=== PATIENT | male | born 1980 | race Two or more races ===

== ENCOUNTER 2025-05-02 16:39 | Inpatient (IN) | payer BC, OTHER ==
[~2025-05-02] VITALS: Ht 175.3 cm; Wt 104.3 kg
--- NOTE | 2025-05-02 17:34 | ED.PDOC ---
Musculoskeletal HPI Comments HPI: 45 y/o M, presents to the ED for CC of right foot swelling. Patient states, his right foot has become swollen and painful onset, x1week ago. Patient reports, that he has been unable to bear weight onto his right extremity d/t pain; patient currently is ambulating with the assistance of crutches. Patient denies any recent trauma, injuries, or fall. No other symptoms or modifying factors are present at this time. Initial Vitals BP: HR: RR: O2 Sat: Temp: Past Medical history: DENIES ANY Past Surgical history: DENIES ANY Medications: DENIES ANY Social History: Denies smoking, ETOH, and drug use. Allergies: NKDA HPI: Poor Historian. REVIEW OF SYSTEMS: CONSTITUTIONAL: Denies acute: fever, diaphoresis, chills, generalized weakness. HEAD: Denies acute: headache, photophobia Eyes: Denies acute: Double vision, vision loss, eye pain, eye discharge. EARS: Denies acute: tinnitus, hearing loss, ear discharge, ear pain, THROAT: Denies acute: sore throat, swelling, difficulty swallowing , pain with swallowing, change in voice. NECK: Denies acute: neck pain, neck swelling, stiff neck. HEART: Denies acute : chest pain, palpitations, LUNGS: Denies acute: SOB, wheezing, cough, hemoptysis ABDOMEN: Denies acute: abdominal pain, Nausea, Vomiting, diarrhea, melena , hematemesis, hematochezia SKIN: Denies acute: rash, redness, lesions, itchiness. EXTREMITIES: Denies acute: calf pain, numbness, tingling, weakness, Denies acute: Low back pain. Neuro: Denies acute: focal neurological deficit, motor or sensory focal neurological deficit, tremors, seizure like activity, confusion, dizziness, change in mental status, loss of bowel or bladder function, cauda equina like symptoms. : Denies acute: dysuria, hematuria, flank pain, increase in urinary frequency. PSYCH: Denies acute: hallucination, suicidal ideation, homicidal ideation. PHYSICAL EXAM: General: ---mild-----acute distress, awake and alert. Head: normocephalic, atraumatic. No raccoon's eyes, no gonzalez sign. Neck: supple, trachea is midline, no swelling. Throat: Normal phonation. Eyes:, no erythema, no purulent discharge, no proptosis, no icterus. Heart: regular rate, regular rhythm, no significant murmur appreciated. Lungs: no apparent respiratory distress, Able to speak in full sentences. No wheezing, no rhonchi, no crackles. No stridors Clear to auscultation bilaterally. Abdomen: non tender to palpation, non distended, soft, no guarding, no rebound, + bowel sounds. Neuro: Awake, Alert, oriented to name, self, situation, follows commands GCS=15. Speech is normal. Skin: no petechia, no purpura, no cyanosis, non-pale, not jaundice. Lower extremities: --no - Pitting edema no deformity, no focal swelling, no calf TTP. Makes eye contact. moves all four extremities. Evaluation of the area of complaint: Right foot medial aspect bruise is noted that is tender to palpation. Patient is neurovascularly intact in the affected extremity. Pedal pulses palpable sensory and motor are present. Patient denies any trauma. Face: no apparent facial droop. ED COURSE: DISCLAIMER: This medical document was created using an electronic medical record system with voice recognition software and computerized dictation system. Although this document has been carefully reviewed, there might still be some phonetic and typographical errors. Occasional wrong-word or "sound-alike" substitutions may have occurred due to the inherent limitations of voice recognition software. These areas are purely typographical due to imperfections of the software programs and do not reflect any compromise in the patient's medical care. Please read the chart carefully and recognize, using context, where these substitutions have occurred. Chief Complaint: Lower Extremity Time Seen by MD: 17:00 Reviewed Notes: Nurses Notes, Medications, Allergies Allergies: Coded Allergies: NO KNOWN ALLERGIES (Unverified , 05/02/25) Home Meds Active Scripts Famotidine (PEPCID TABLET) 20 Mg Tb, 1 TAB PO BID for 30 Days, #60 TAB 0 Refills Prov:SUKH RIDER MD 05/04/25 Prednisone (Prednisone) 20 Mg Tab, 40 MG PO DAILY for 3 Days, #6 MG Prov:SUKH RIDER MD 05/04/25 Reported Medications Ibuprofen (Ibuprofen) 400 Mg Tab, 400 MG PO, TAB 05/03/25 Information Source: Patient Mode of Arrival: Ambulatory Location: Right Extremity Location: Foot Timing: Weeks Prehospital treatment: None Severity: Moderate Able to Move Extremity: Yes Bear Weight: No Pain: Moderate Mechanism: Spontaneous Circumstances: Spontaneous Onset of Symptoms: Spontaneous Symptoms: Swelling, Pain DVT Risk Factors: NONE Associated signs and symptoms: Foot pain Was a procedure done? Was a procedure done?: No Differential Diagnosis EXT Differential Diagnosis: Cellulitis, Fracture, Sprain, Dislocation, Gout, Con tusion, Septic, Neurovascular injury, Arthritis, Bursitis, Other (Leg swellingDdx include but not limited to DVT, ischemic limb, pitting edema, volume overload, CHF, cellulitis, hematoma, compartment syndrome, dependent edema, venous stasis. Necrotizing fasciitis, abscess, infestation.) X-Ray, Labs, Meds, VS Vital Signs Date Time Temp Pulse Resp B/P (MAP) Pulse Ox O2 Delivery O2 Flow Rate FiO2 05/02/25 20:42 98.1 88 20 142/88 (106) 97 98.1 05/02/25 17:20 96 18 100 Room Air 05/02/25 17:20 98.0 96 18 166/95 (118) 100 98.0 05/02/25 17:18 Room Air* 0 21 05/02/25 16:43 97.0 110 19 133/80 97 97.0 Lab Test 05/02/25 17:12 Range/Units White Blood Count 10.6 4.4-10.8 10^3/uL Red Blood Count 5.19 4.5-5.90 10^6/uL Hemoglobin 15.5 13.5-17.5 g/dL Hematocrit 43.5 41.0-53.0 % Mean Corpuscular Volume 83.9 80.0-100.0 fL Mean Corpuscular Hemoglobin 29.9 28.0-32.0 pg Mean Corpuscular Hemoglobin Concent 35.7 32.0-36.0 g/dL Red Cell Distribution Width 13.1 11.8-14.3 % Platelet Count 307 140-450 10^3/uL Mean Platelet Volume 8.1 6.9-10.8 fL Neutrophils (%) (Auto) 63.3 37.0-80.0 % Lymphocytes (%) (Auto) 28.3 10.0-50.0 % Monocytes (%) (Auto) 6.6 0.0-12.0 % Eosinophils (%) (Auto) 1.3 0.0-7.0 % Basophils (%) (Auto) 0.5 0.0-2.0 % Neutrophils # (Auto) 6.7 1.6-8.6 10 ^3/uL Lymphocytes # (Auto) 3.0 0.4-5.4 10 ^3/uL Monocytes # (Auto) 0.7 0-1.3 10 ^3/uL Eosinophils # (Auto) 0.1 0-0.8 10 ^3/uL Basophils # (Auto) 0.1 0-0.2 10 ^3/uL Nucleated Red Blood Cells 0.0 % Erythrocyte Sedimentation Rate 27 H 0-20 mm/hr Sodium Level 142 136-145 mmol/L Potassium Level 3.5 3.5-5.1 mmol/L Chloride Level 105 98-107 mmol/L Carbon Dioxide Level 23 20-31 mmol/L Anion Gap 14 5-15 Blood Urea Nitrogen 14 9-23 mg/dL Creatinine 1.36 H 0.700-1.30 mg/dL Glomerular Filtration Rate Calc 66 >90 mL/min BUN/Creatinine Ratio 10.3 10.0-20.0 Serum Glucose 107 H 74-106 mg/dL Lactic Acid Level 2.0 0.4-2.0 mmol/L Uric Acid 9.5 H 3.7-9.2 mg/dL Calcium Level 9.7 8.7-10.4 mg/dL Total Bilirubin 0.5 0.2-1.0 mg/dL Aspartate Amino Transferase (AST) 31 13-40 U/L Alanine Aminotransferase (ALT) 54 H 7-40 U/L Alkaline Phosphatase 96 46-116 U/L C-Reactive Protein High Sensitivity 1.63 H <1.0 mg/dL Total Protein 8.5 H 5.7-8.2 g/dL Albumin 5.0 H 3.2-4.8 g/dL Microbiology Date/Time Source Procedure Growth Status 05/02/25 17:16 Blood Blood Culture - Preliminary Resulted 05/02/25 17:12 Blood Blood Culture - Preliminary NO GROWTH AFTER 48 HOURS OF INCUBATION. Resulted [facility] [address] [place] [facility] [place] [address] Ph: [phone] DIAGNOSTIC IMAGING Diagnostic Imaging Report : [id number] Signed PATIENT: SHANTELLE GUADARRAMA ACCT: [id number] UNIT: [id number] : 1980 LOC: ER ROOM / BED: / AGE / SEX: 45 / M ADM STATUS: REG ER SERVICE 34 ORDERING PHYSICIAN: KATY HEMPHILL DO PROCEDURE(s): RFOOT - R FOOT 3 VIEW XRAY REASON: pain swelling ORDER NUMBER(s): [id number], ACCESSION NUMBER(s): [id number] CLINICAL INDICATION: pain swelling TECHNIQUE: 3 radiographic views of the foot were obtained. Comparison: XR FOOT 3+ VIEWS BILAT on DOS: 10/04/23 FINDINGS/IMPRESSION: No fractures or dislocations. No radiopaque foreign bodies. ATED BY: KIMBERLEE SIGALA Jr., DO DICTATED DATE/TIME: 05/02/251904 SIGNED BY: KIMBERLEE SIGALA Jr., SIGNED DATE/TIME: 05/02/251904 CC: Time of 1ST Reevaluation: 17:30 Reevaluation 1ST: Unchanged Patient Education/Counseling: Diagnosis, Treatment Family Education/Counseling: No Family Present Comments MDM: patient presented with the above HPI. Atraumatic--foot pain and swelling----workup was initiated. patient was found with the above mentioned diagnosis. the following medications were ordered: please refer to order lists of meds and tests obtained by myself Dr. Hemphill. Patient ED course and VS have been stabilized. Patient has been reassessed in the ED and remained in a stable condition. Pertinent incidental findings were discussed with the patient and/or family. Patient/family voices understanding and is agreeable with plan. Patient has been observed in the ED adequate length of time to insure improvement/stability. Escalation of care considered: Consideration of escalation to observation or admission Patient was given empiric antibiotics for possible osteomyelitis foot. Patient was ADMITTED to the medicine team for further evaluation and treatment of their presentation. All the reports of any imaging studies that were ordered by myself were reviewed by myself. Sepsis Sepsis Reasesment Focused Exam Orders: Laboratory Tests 05/02/25 17:12: Lactic Acid Level 2.0 Departure 1 Departure Time of Disposition: 20:21 Impression: Primary Impression: Right foot pain Additional Impression: Swelling of right foot Disposition: ADMITTED INPATIENT Admit to: Tele Condition: Guarded Additional Instructions: [address] [address] Ph: [phone] DIAGNOSTIC IMAGING Diagnostic Imaging Report : [id number] Signed PATIENT: SHANTELLE GUADARRAMA ACCT: [id number] UNIT: [id number] : 1980 LOC: ER ROOM / BED: / AGE / SEX: 45 / M ADM STATUS: REG ER SERVICE 34 ORDERING PHYSICIAN: KATY HEMPHILL DO PROCEDURE(s): RFOOT - R FOOT 3 VIEW XRAY REASON: pain swelling ORDER NUMBER(s): [id number], ACCESSION NUMBER(s): [id number] CLINICAL INDICATION: pain swelling TECHNIQUE: 3 radiographic views of the foot were obtained. Comparison: XR FOOT 3+ VIEWS BILAT on DOS: 10/04/23 FINDINGS/IMPRESSION: No fractures or dislocations. No radiopaque foreign bodies. ATED BY: KIMBERLEE SIGALA Jr., DO DICTATED DATE/TIME: 05/02/251904 SIGNED BY: KIMBERLEE SIGALA Jr., DO SIGNED DATE/TIME: 05/02/251904 CC: e-Prescriptions Famotidine (PEPCID TABLET) 20 Mg Tb 1 TAB PO BID for 30 Days, #60 TAB 0 Refills Prov: SUKH RIDER MD 05/04/25 Prednisone (Prednisone) 20 Mg Tab 40 MG PO DAILY for 3 Days, #6 MG Prov: SUKH RIDER MD 05/04/25 Discharged With: Self Critical Care Note Critical Care Time?: No I personally scribed for KATY HEMPHILL DO ([email or web address]) on 05/02/25 at 17:34. Electronically submitted by Kaylin Anthony ([email or web address]). I personally scribed for KATY HEMPHILL DO ([email or web address]) on 05/02/25 at 19:57. Electronically submitted by Kaylin Anthony ([email or web address]). KATY HEMPHILL DO May 02, 2025 17:34
[2025-05-02 17:50] LABS: Hematocrit 43.5 % (41.0-53.0); Hemoglobin 15.5 g/dL (13.5-17.5); Mean Corpuscular Hemoglobin 29.9 pg (28.0-32.0); Mean Corpuscular Volume 83.9 fL (80.0-100.0); Nucleated Red Blood Cells % 0.0 %
[2025-05-02 17:54] LABS: Alkaline Phosphatase 96 U/L (46-116); Anion Gap 14 (5-15); BUN/Creatinine Ratio 10.3 (10.0-20.0); Blood Urea Nitrogen 14 mg/dL (9-23); Calcium 9.7 mg/dL (8.7-10.4); Carbon Dioxide 23 mmol/L (20-31); Chloride 105 mmol/L (98-107); Sodium 142 mmol/L (136-145)
[2025-05-02 17:55] LABS: Bilirubin, Total 0.5 mg/dL (0.2-1.0)
[2025-05-02 17:59] LABS: Alanine Aminotransferase 54 U/L (7-40); Albumin 5.0 g/dL (3.2-4.8); Glucose 107 mg/dL (74-106); Potassium 3.5 mmol/L (3.5-5.1); Total Protein 8.5 g/dL (5.7-8.2)
--- NOTE | 2025-05-02 19:08 | DVH ---
CLINICAL INDICATION: pain swelling TECHNIQUE: 3 radiographic views of the foot were obtained. Comparison: XR FOOT 3+ VIEWS BILAT on DOS: 10/04/23 FINDINGS/IMPRESSION: No fractures or dislocations. No radiopaque foreign bodies.
[2025-05-02] MEDS: HYDROcodone-ACET 5/325MG TAB PO ONE (21:17)
[2025-05-02] MEDS: CLINDAMYCIN 600MG IV 50 ML IV ONE (21:21)
--- NOTE | 2025-05-02 21:45 | DVHHPRES ---
History of Present Illness Resident Creating Document: TEJINDER LOPEZ History of Present Illness Patient is a 45-year-old male with no significant past medical history, presented to [facility] ED with complaint of right foot pain and swelling. Patient reports that his right foot became swollen and painful st arting 1 week ago. He describes the pain as burning in nature, radiating to the right big toe, and associated with swelling and bruising and also reports pain in his left big toe. 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 He also reports a right foot fracture sustained 20 years ago, without surgical intervention. Since then, he has experienced intermittent pain and swelling in the right foot. Patient reports inability to bear weight on the right lower extremity due to pain. Patient is currently ambulating with the assistance of crutches. Patient denies any recent trauma, injury, or falls. On evaluation in the ED, patient is afebrile, vitals are stable, blood pressure 166/95 mmHg. Initial labs show significant uric acid 9.5, creatinine 1.35 with elevated ESR, CRP. Foot X-Ray shows no fractures or dislocations and no radiopaque foreign bodies. The patient was started on pain medication and IV fluids. Patient is admitted for further evaluation and manage ment. Past Surgical History: None Family History: None Smoke: Quit ALCOHOL: heavy Drugs: None Lives: with Family Review of Systems Review of Systems Eyes: No Pain, No Vision change, No Conjunctivae inflammation, No Eyelid inflammation, No Other, No Redness ENT: No Ear pain, No Ear discharge, No Nose pain, No Nose discharge, No Nose congestion, No Mouth pain, No Mouth swelling, No Throat pain, No Throat swelling, No Other Cardiovascular: No Chest Pain, No Palpitations, No Orthopnea, No Paroxysmal No Dyspnea, No Edema, No Lt Headedness, No Other Respiratory: No Cough, No Dry, No Shortness of breath, No SOB with exertion, No Wheezing, No Hemoptysis, No Pleuritic Pain, No Sputum, No Other Gastrointestinal: No Nausea, No Vomiting, No Abdominal Pain, No Diarrhea, No Constipation, No Melena, No Hematochezia, No Other Genitourinary: No Dysuria, No Frequency, No Incontinence, No Hematuria, No Retention, No Other Musculoskeletal: No other, No neck pain, No shoulder pain, No arm pain, No back pain, No hand pain, No leg pain, left foot pain, right foot pain Skin: No Rash, No Lesions, No Jaundice, No Bruising, No Other Allergies: Coded Allergies: NO KNOWN ALLERGIES (Unverified , 05/02/25) Exam Vital Signs Vital Signs Date Time Temp Pulse Resp B/P (MAP) Pulse Ox O2 Delivery O2 Flow Rate FiO2 05/02/25 20:42 98.1 88 20 142/88 (106) 97 98.1 05/02/25 17:20 Room Air 05/02/25 17:18 0 21 Exam General Appearance: Mild distress. Cooperative. Well developed. Well nourished. NAD Head Exam: Normal inspection Neck Exam: Normal inspection. Non-tender. Normal alignment Pulmonary/Respiratory: Chest non-tender. Clear bilateral breath sounds, no crackles, no wheezing. Cardiovascular/Chest: Regular rate and rhythm. No murmurs. No JVD. Peripheral Pulses: 2+ Radial (R). 2+ Radial (L). 2+ Pedal (R). 2+ Pedal (L) Abdominal Exam: Normal bowel sounds. Soft. normal abdomen, no visible veins, Nontender. No hepatospenomegaly. No masses Ankle Exam: Ankle edema Right Lower Extremity: +1 pitting edema. Bruising noted. Visible deformity of the right forefoot. Decreased pedal pulse compared to contralateral side Neuro/Mental Status: A&O x4. Coherent. Thoughts/Psych: Normal thought pattern. Appropriate mood and affect. Good judgement and insight Skin Exam: Normal inspection. Normal color. Warm. Dry Labs/Xrays Labs Test 05/02/25 17:12 Range/Units White Blood Count 10.6 4.4-10.8 10^3/uL Red Blood Count 5.19 4.5-5.90 10^6/uL Hemoglobin 15.5 13.5-17.5 g/dL Hematocrit 43.5 41.0-53.0 % Mean Corpuscular Volume 83.9 80.0-100.0 fL Mean Corpuscular Hemoglobin 29.9 28.0-32.0 pg Mean Corpuscular Hemoglobin Concent 35.7 32.0-36.0 g/dL Red Cell Distribution Width 13.1 11.8-14.3 % Platelet Count 307 140-450 10^3/uL Mean Platelet Volume 8.1 6.9-10.8 fL Neutrophils (%) (Auto) 63.3 37.0-80.0 % Lymphocytes (%) (Auto) 28.3 10.0-50.0 % Monocytes (%) (Auto) 6.6 0.0-12.0 % Eosinophils (%) (Auto) 1.3 0.0-7.0 % Basophils (%) (Auto) 0.5 0.0-2.0 % Neutrophils # (Auto) 6.7 1.6-8.6 10 ^3/uL Lymphocytes # (Auto) 3.0 0.4-5.4 10 ^3/uL Monocytes # (Auto) 0.7 0-1.3 10 ^3/uL Eosinophils # (Auto) 0.1 0-0.8 10 ^3/uL Basophils # (Auto) 0.1 0-0.2 10 ^3/uL Nucleated Red Blood Cells 0.0 % Erythrocyte Sedimentation Rate 27 H 0-20 mm/hr Sodium Level 142 136-145 mmol/L Potassium Level 3.5 3.5-5.1 mmol/L Chloride Level 105 98-107 mmol/L Carbon Dioxide Level 23 20-31 mmol/L Anion Gap 14 5-15 Blood Urea Nitrogen 14 9-23 mg/dL Creatinine 1.36 H 0.700-1.30 mg/dL Glomerular Filtration Rate Calc 66 >90 mL/min BUN/Creatinine Ratio 10.3 10.0-20.0 Serum Glucose 107 H 74-106 mg/dL Lactic Acid Level 2.0 0.4-2.0 mmol/L Uric Acid 9.5 H 3.7-9.2 mg/dL Calcium Level 9.7 8.7-10.4 mg/dL Total Bilirubin 0.5 0.2-1.0 mg/dL Aspartate Amino Transferase (AST) 31 13-40 U/L Alanine Aminotransferase (ALT) 54 H 7-40 U/L Alkaline Phosphatase 96 46-116 U/L C-Reactive Protein High Sensitivity 1.63 H <1.0 mg/dL Total Protein 8.5 H 5.7-8.2 g/dL Albumin 5.0 H 3.2-4.8 g/dL SEPSIS Sepsis Screen Date sepsis recognized/suspect: May 02, 2025 Time Sepsis recognized/suspect: 2042 Recent Procedure: No On Antibiotic Therapy: No Respiratory Rate >20: No Heart Rate >90: No Temp<36 C (96.8 F) or >38.3 C: No SBP <90 or MAP <65 mmHG: No New Acute Mental Status Change: No Is the patient on CPAP, BIPAP,: No Physician Orders Road Commissioner (05/02/25 ) Blood Culture (05/02/25 16:56) R Foot 3 View Xray (05/02/25 18:35) Vital Signs Date Time Temp Pulse Resp B/P (MAP) Pulse Ox O2 Delivery O2 Flow Rate FiO2 05/02/25 20:42 98.1 88 20 142/88 (106) 97 98.1 05/02/25 17:20 96 18 100 Room Air 05/02/25 17:20 98.0 96 18 166/95 (118) 100 98.0 05/02/25 17:18 Room Air* 0 21 05/02/25 16:43 97.0 110 19 133/80 97 97.0 Laboratory Tests Test 05/02/25 17:12 Lactic Acid Level 2.0 mmol/L (0.4-2.0) White Blood Count 10.6 10^3/uL (4.4-10.8) Medications Medications Dose Ordered Sig/Miracle Route Start Time Stop Time Status Last Admin Dose Admin Acetaminophen/ Hydrocodone Bitart 1 tab ONCE ONCE PO 05/02/25 20:15 05/02/25 20:22 DC 05/02/25 21:17 1 TAB Clindamycin Phosphate 50 ml @ 50 mls/hr ONCE ONCE IV 05/02/25 20:30 05/02/25 21:29 DC 05/02/25 21:21 50 MLS/HR Assessment/Plan Assessment/Plan Gout flare Ruled out DVT Bilateral lower extremity venous duplex: No right or left femoropopliteal venous thrombosis. Enlarged right inguinal lymph node. Bilateral lower extremity arterial duplex: No hemodynamically significant stenosis based on peak systolic velocity criteria. Foot CT: No acute fracture in the right foot. Mild 1st MTP joint osteoarthritis. Degenerative changes of the tarsometatarsal joints with osteophyte formation, subchondral lucencies and mild joint space narrowing. Mild subcutaneous edema throughout the right foot. Foot X-ray: No fractures or dislocations. No radiopaque foreign bodies. Colchicine 1.2 MG PO once Uric acid 9.5 UA and UDS pain management with Dilaudid 0.25 MG IV q4h prn IV NS 150 MLS/HR Blood culture THANG Transaminase Monitor Possible TIN on CKD likely due to VMN Monitor renal function Avoid nephrotoxic drugs Diet: Cardiac Goals of care: Full code, discussed for >30 minutes on 05/02/25 Plan discussed with patient Plan discussed with Dr. Schumacher Plan discussed with: Patient Date of Service: May 02, 2025 Billing Provider: TROY SCHUMACHER MD Common Visit Codes: 89548-[id number] INP/OBS CARE (HIGH) Secondary Visit Codes: [id number] CARE PLAN 30 MINUTES TEJINDER LOPEZ RESIDENT May 02, 2025 21:45
[2025-05-02] MEDS: SODIUM CHLORIDE 0.9% 1,000 ML IV ONE (23:37)
[2025-05-02 23:47] VITALS: PULSE 69; RESP 18; O2SAT 94
--- NOTE | 2025-05-02 23:49 | DVH ---
EXAM: CT CT R FOOT WO CONTRAST HISTORY: right foot pain COMPARISON: XY R FOOT 3 VIEW XRAY on DOS: 05/02/25 TECHNIQUE: Noncontrast axial CT images of the right foot were performed. Sagittal and coronal reformatted images were obtained. This CT exam was performed using one or more of the following dose reduction techniques: Automated exposure control, adjustment of the mA and/or kV according to patient size, or use of iterative reconstruction technique. Radiation Dose Information: CT Dose: CTDI volume is 24.96 mGy. Dose-length product is 800.05 mGy*cm FINDINGS: Normal mineralization and alignment.Mild 1st MTP joint osteoarthritis. There is degenerative changes of the tarsometatarsal joints with osteophyte formation, subchondral lucencies and joint space narrowing. No acute fracture. No focal osteopenia or cortical destruction is seen to suggest osteomyelitis. Mild subcutaneous edema throughout the right foot. No soft tissue emphysema or fluid collection. IMPRESSION: 1. No acute fracture in the right foot. 2. Mild 1st MTP joint osteoarthritis 3. Degenerative changes of the tarsometatarsal joints with osteophyte formation, subchondral lucencies and mild joint space narrowing. 4. Mild subcutaneous edema throughout the right foot.
[2025-05-03] VITALS (9 sets, daily range): BP systolic 107–136; BP diastolic 64–84; PULSE 69–106; RESP 16–18; TEMP 97.9–98.9; O2SAT 95–97
--- NOTE | 2025-05-03 00:23 | DVH ---
Bilateral lower extremity venous duplex Clinical History: foot pain Comparison: US BILAT LOW EXT ART DUPLEX on DOS: 05/02/25 Technique: Duplex Doppler evaluation of the deep venous systems of both lower extremities from the common femoral veins to the popliteal veins including color Doppler and spectral/pulsed waveform analysis was performed. Findings: RIGHT SIDE: The common femoral vein demonstrates appropriate compressibility and waveform variability. There is compressibility/patency of the great saphenous vein at the proximal thigh. The femoral vein demonstrates appropriate compressibility and waveform variability. The deep femoral vein demonstrates appropriate compressibility and waveform variability. The popliteal vein demonstrates appropriate compressibility and waveform variability. There is normal compressibility at the tibioperoneal trunk. Enlarged right inguinal lymph node measures 4.1 cm. LEFT SIDE: The common femoral vein demonstrates appropriate compressibility and waveform variability. There is compressibility/patency of the great saphenous vein at the proximal thigh. The femoral vein demonstrates appropriate compressibility and waveform variability. The deep femoral vein demonstrates appropriate compressibility and waveform variability. The popliteal vein demonstrates appropriate compressibility and waveform variability. Rouleaux flow noted. There is normal compressibility at the tibioperoneal trunk. Impression: 1. No right or left femoropopliteal venous thrombosis. 2. Enlarged right inguinal lymph node.
--- NOTE | 2025-05-03 00:29 | DVH ---
Bilateral Lower Extremity Arterial Duplex Clinical History: decrease pedal pulse Comparison: US BILAT LOWER DVT on DOS: 05/02/25 Technique: Duplex Doppler evaluation including color Doppler and spectral/pulsed waveform analysis of the lower extremity arteries was performed. Findings: RIGHT: Peak systolic velocities are as follows: ALMOND BLANCHER 97 cm/s Deep femoral 59 cm/s SFA proximal 109 cm/s SFA mid-portion 106 cm/s SFA distal 100 cm/s Posterior tibial 94 cm/s Anterior tibial 104 cm/s Dorsalis pedis 121 cm/s The waveforms are triphasic with diastolic flow. LEFT: Peak systolic velocities are as follows: ALMOND BLANCHER is 86 cm/s Deep femoral 45 cm/s SFA proximal 106 cm/s SFA mid-portion 85 cm/s SFA distal 85 cm/s Popliteal 60 cm/s Posterior tibial 57 cm/s Anterior tibial 62 cm/s Dorsalis pedis 69 cm/s The waveforms are triphasic with diastolic flow. IMPRESSION: No hemodynamically significant stenosis based on peak systolic velocity criteria. REFERENCE VALUES, [facility] ([facility]) vascular Imaging Lab Criteria: Peak systolic velocity ranges (in cm/sec) are as follows: <150 cm/s - <20 % stenosis 150-200 cm/s - 20-49% stenosis 200-300 cm/s - 50-75% stenosis >300 cm/s -> 75% stenosis
[2025-05-03 02:53] LABS: Hematocrit 42.2 % (41.0-53.0); Hemoglobin 14.6 g/dL (13.5-17.5); Mean Corpuscular Hemoglobin 29.5 pg (28.0-32.0); Mean Corpuscular Volume 85.4 fL (80.0-100.0); Nucleated Red Blood Cells % 0.0 %
[2025-05-03 03:17] LABS: Alanine Aminotransferase 46 U/L (7-40); Albumin 4.5 g/dL (3.2-4.8); Alkaline Phosphatase 87 U/L (46-116); Anion Gap 10 (5-15); BUN/Creatinine Ratio 13.4 (10.0-20.0); Bilirubin, Total 0.6 mg/dL (0.2-1.0); Blood Urea Nitrogen 17 mg/dL (9-23); Calcium 9.9 mg/dL (8.7-10.4); Carbon Dioxide 27 mmol/L (20-31); Chloride 105 mmol/L (98-107); Glucose 98 mg/dL (74-106); Potassium 4.3 mmol/L (3.5-5.1); Sodium 142 mmol/L (136-145); Total Protein 7.4 g/dL (5.7-8.2)
[2025-05-03] MEDS: COLCHICINE 0.6 MG CAP PO ONE (05:12)
[2025-05-03] MEDS: HYDROmorphone HCL 2 MG/ML VL/or syr IV PRN (05:13)
[2025-05-03] MEDS ORDERED: IBUP-1453 PO (06:01)
--- NOTE | 2025-05-03 12:15 | DVHPN2 ---
Reviewed: H&P Changes from previous H/P or p: No Changes General: Per HPI Objective Vitals Vital Signs Date Time Temp Pulse Resp B/P (MAP) Pulse Ox O2 Delivery O2 Flow Rate FiO2 05/03/25 08:51 97.9 90 17 125/83 (97) 96 97.9 05/03/25 01:22 Room Air* 0 21 Intake/Output Intake and Output 05/03/25 07:00 Intake Total 50 ml Balance 50 ml Intake IV Total 50 ml # Voids 1 Exam General Appearance: Mild distress. Cooperative. Well developed. Well nourished. NAD Head Exam: Normal inspection Neck Exam: Normal inspection. Non-tender. Normal alignment Pulmonary/Respiratory: Chest non-tender. Clear bilateral breath sounds, no crackles, no wheezing. Cardiovascular/Chest: Regular rate and rhythm. No murmurs. No JVD. Peripheral Pulses: 2+ Radial (R). 2+ Radial (L). 2+ Pedal (R). 2+ Pedal (L) Abdominal Exam: Normal bowel sounds. Soft. normal abdomen, no visible veins, Nontender. No hepatospenomegaly. No masses Ankle Exam: Ankle edema Right Lower Extremity: +1 pitting edema. Bruising noted. Visible deformity of the right forefoot. Decreased pedal pulse compared to contralateral side Neuro/Mental Status: A&O x4. Coherent. Thoughts/Psych: Normal thought pattern. Appropriate mood and affect. Good judgement and insight Skin Exam: Normal inspection. Normal color. Warm. Dry Medications Current Medications Medications Dose Ordered Sig/Miracle Route Start Time Stop Time Status Last Admin Dose Admin Hydromorphone HCl 0.25 mg Q4HPRN PRN IV 05/02/25 22:45 05/03/25 05:13 0.25 MG Laboratory Results Laboratory Tests 05/03/25 02:16 Chemistry Test 05/02/25 17:12 05/03/25 02:16 Albumin 5.0 g/dL (3.2-4.8) H 4.5 g/dL (3.2-4.8) Calcium Level 9.7 mg/dL (8.7-10.4) 9.9 mg/dL (8.7-10.4) Total Protein 8.5 g/dL (5.7-8.2) H 7.4 g/dL (5.7-8.2) LFT Test 05/02/25 17:12 05/03/25 02:16 Alanine Aminotransferase (ALT) 54 U/L (7-40) H 46 U/L (7-40) H Alkaline Phosphatase 96 U/L (46-116) 87 U/L (46-116) Aspartate Amino Transferase (AST) 31 U/L (13-40) 25 U/L (13-40) Total Bilirubin 0.5 mg/dL (0.2-1.0) 0.6 mg/dL (0.2-1.0) Labs and/or images reviewed: Labs reviewed by me, Image(s) reviewed by me Assessment/Plan Assessment/Plan 45-year-old male with no significant past medical history, presented to [facility] ED with complaint of right foot pain and swelling. Patient reports that his right foot became swollen and painful starting 1 week ago. He describes the pain as burning in nature, radiating to the right big toe, and associated with swelling and bruising and also reports pain in his left big toe. 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 He also reports a right foot fracture sustained 20 years ago, without surgical intervention. Since then, he has experienced intermittent pain and swelling in the right foot. Patient reports inability to bear weight on the right lower extremity due to pain. Patient is currently ambulating with the assistance of crutches. Patient denies any recent trauma, injury, or falls. On evaluation in the ED, patient is afebrile, vitals are stable, blood pressure 166/95 mmHg. Initial labs show significant uric acid 9.5, creatinine 1.35 with elevated ESR, CRP. Foot X-Ray shows no fractures or dislocations and no radiopaque foreign bodies. The patient was started on pain medication and IV fluids. Patient is admitted for further evaluation and management. 05/03: 45-year-old male no past medical coming in with right foot pain swollen. Gout flare right foot,. Also have TIN due to VMN,. Right foot x-ray and CT with no fractures. Arterial ultrasound bilateral lower extremity with no stenosis. We will continue IV fluids, colchicine, Solu-Medrol IV 20 b.i.d., Protonix 40 daily IV. 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 We will give IV fluids. Treating gout inpatient. Reassess tomorrow. 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 Med surge Full code Plan discussed with: Patient Date of Service: May 03, 2025 Billing Provider: SUKH RIDER MD Common Visit Codes: [id number] INP/OBS CARE(HIGH) SUKH RIDER MD May 03, 2025 12:15
[2025-05-03] MEDS: COLCHICINE 0.6 MG CAP PO SCH (13:08)
[2025-05-03] MEDS: PANTOPRAZOLE 40 MG/10 ML VIAL INJ IV SCH (13:08)
[2025-05-03] MEDS: methylPREDNISolone SOD SUCC 40 MG/ML VL IV SCH (13:10)
[2025-05-03] MEDS: SODIUM CHLORIDE 0.9% 1,000 ML IV ONE (13:14)
[2025-05-03 14:36] LABS: Urine Protein, UAD Negative (Negative)
[2025-05-03 14:39] LABS: Cocaine Screen, Urine Neg (NEGATIVE); Opiate Scree,Urine Neg (NEGATIVE)
[2025-05-03 14:47] LABS: Amphetamine Screen, Urine Neg (NEGATIVE); Barbiturate Scree,Urine Neg (NEGATIVE); Benzodiazephine Screen, Urine Neg (NEGATIVE); Phencyclidine Screen, Urine Neg (NEGATIVE)
[2025-05-03 14:48] LABS: Cannabinoid Screen, Urine Neg (NEGATIVE)
[2025-05-04 01:00] VITALS: BP 107/52; PULSE 97; RESP 18; TEMP 98.2; O2SAT 93
[2025-05-04 05:00] VITALS: BP 109/63; PULSE 94; RESP 18; TEMP 99.2; O2SAT 97
[2025-05-04 06:47] LABS: Alkaline Phosphatase 96 U/L (46-116); Calcium 10.2 mg/dL (8.7-10.4); Carbon Dioxide 25 mmol/L (20-31); Chloride 105 mmol/L (98-107)
[2025-05-04 06:48] LABS: Albumin 4.5 g/dL (3.2-4.8); Anion Gap 12 (5-15); BUN/Creatinine Ratio 11.7 (10.0-20.0); Bilirubin, Total 0.6 mg/dL (0.2-1.0); Blood Urea Nitrogen 14 mg/dL (9-23); Potassium 4.1 mmol/L (3.5-5.1); Sodium 142 mmol/L (136-145); Total Protein 7.8 g/dL (5.7-8.2)
[2025-05-04 06:50] LABS: Alanine Aminotransferase 70 U/L (7-40); Glucose 142 mg/dL (74-106)
[2025-05-04 08:00] VITALS: PULSE 96; O2SAT 93
[2025-05-04 09:00] VITALS: BP 128/63; PULSE 96; RESP 17; TEMP 98.6; O2SAT 93
[2025-05-04] MEDS ORDERED: VANCOMYCIN PER PHARMACY 0 MG IV SCH (09:30)
[2025-05-04] MEDS: VANCOMYCIN 1.5GM/250ML 250 ML IV SCH (10:25)
[2025-05-04 13:00] VITALS: BP 119/77; PULSE 79; RESP 17; TEMP 99; O2SAT 94
[2025-05-04 13:08] LABS: Anti-Centromere B Antibody <0.2 AI (0.0-0.9); Anti-Jo-1 Antibody <0.2 AI (0.0-0.9); Anti-dsDNA Antibody <1 IU/mL (0-9); Antichromatin Antibody <0.2 AI (0.0-0.9); Antiscleroderma-70 Antibody <0.2 AI (0.0-0.9); Sjogren's Anti-SS-A Antibody <0.2 AI (0.0-0.9); Sjogren's Anti-SS-B Antibody <0.2 AI (0.0-0.9)
[2025-05-04] MEDS ORDERED: diphenhydrAMINE HCL 50 MG/1 ML VL IV PRN (13:45)
[2025-05-04] MEDS ORDERED: PRED20TA2 PO (14:14)
[2025-05-04] MEDS ORDERED: FAMO20TA10 PO (14:16)
--- NOTE | 2025-05-04 14:17 | DVHDS2 ---
Discharge Summary Date of Admission May 02, 2025 at 22:36 Date of Discharge: May 04, 2025 Labs/Diagnostic Data: Laboratory Results Test 05/04/25 05:08 05/03/25 13:24 05/03/25 02:16 05/02/25 17:12 Sodium Level 142 mmol/L (136-145) Potassium Level 4.1 mmol/L (3.5-5.1) Chloride Level 105 mmol/L (98-107) Carbon Dioxide Level 25 mmol/L (20-31) Anion Gap 12 (5-15) Blood Urea Nitrogen 14 mg/dL (9-23) Creatinine 1.20 mg/dL (0.700-1.30) Glomerular Filtration Rate Calc 77 mL/min (>90) BUN/Creatinine Ratio 11.7 (10.0-20.0) Serum Glucose 142 mg/dL (74-106) Calcium Level 10.2 mg/dL (8.7-10.4) Total Bilirubin 0.6 mg/dL (0.2-1.0) Aspartate Amino Transferase (AST) 41 U/L (13-40) Alanine Aminotransferase (ALT) 70 U/L (7-40) Alkaline Phosphatase 96 U/L (46-116) Total Protein 7.8 g/dL (5.7-8.2) Albumin 4.5 g/dL (3.2-4.8) Urine Color Light-yellow (Yellow) Urine Clarity Clear (Clear) Urine pH 5.5 (5.0-9.0) Urine Specific Shiro 1.015 (1.001-1.035) Urine Protein Negative (Negative) Urine Ketones Negative (Negative) Urine Blood Negative /uL (Negative) Urine Nitrite Negative (Negative) Urine Bilirubin Negative (Negative) Urine Urobilinogen Normal mg/dL (Negative) Urine Leukocyte Esterase Negative /uL (Negative) Urine RBC 1 /hpf (0 - 3) Urine Microscopic WBC 2 /HPF (0-3) Urine Squamous Epithelial Cells Few /hpf (<5) Urine Bacteria None seen /hpf (None Seen) Urine Glucose Normal mg/dL (Normal) Urine Opiates Screen Neg (NEGATIVE) Urine Fentanyl Screen Neg (NEGATIVE) Urine Barbiturates Screen Neg (NEGATIVE) Urine Phencyclidine Screen Neg (NEGATIVE) Urine Amphetamines Screen Neg (NEGATIVE) Urine Benzodiazepines Screen Neg (NEGATIVE) Urine Cocaine Screen Neg (NEGATIVE) Urine Cannabinoids Screen Neg (NEGATIVE) White Blood Count 11.2 10^3/uL (4.4-10.8) Red Blood Count 4.93 10^6/uL (4.5-5.90) Hemoglobin 14.6 g/dL (13.5-17.5) Hematocrit 42.2 % (41.0-53.0) Mean Corpuscular Volume 85.4 fL (80.0-100.0) Mean Corpuscular Hemoglobin 29.5 pg (28.0-32.0) Mean Corpuscular Hemoglobin Concent 34.5 g/dL (32.0-36.0) Red Cell Distribution Width 13.0 % (11.8-14.3) Platelet Count 292 10^3/uL (140-450) Mean Platelet Volume 8.0 fL (6.9-10.8) Neutrophils (%) (Auto) 67.0 % (37.0-80.0) Lymphocytes (%) (Auto) 24.5 % (10.0-50.0) Monocytes (%) (Auto) 6.8 % (0.0-12.0) Eosinophils (%) (Auto) 1.5 % (0.0-7.0) Basophils (%) (Auto) 0.2 % (0.0-2.0) Neutrophils # (Auto) 7.5 10 ^3/uL (1.6-8.6) Lymphocytes # (Auto) 2.7 10 ^3/uL (0.4-5.4) Monocytes # (Auto) 0.8 10 ^3/uL (0-1.3) Eosinophils # (Auto) 0.2 10 ^3/uL (0-0.8) Basophils # (Auto) 0 10 ^3/uL (0-0.2) Nucleated Red Blood Cells 0.0 % Uric Acid 9.7 mg/dL (3.7-9.2) Anti-Nuclear Antibody Comment Comment (.) JER-1 Antibody <0.2 AI (0.0-0.9) SS-A/Ro Antibody <0.2 AI (0.0-0.9) SS-B/La Antibody <0.2 AI (0.0-0.9) Sm Antibody <0.2 AI (0.0-0.9) PROJECT CONTROLS SCHEDULER Antibody <0.2 AI (0.0-0.9) Scl-70 (Scleroderma) Antibody <0.2 AI (0.0-0.9) Anti-Double Strand DNA Antibody <1 IU/mL (0-9) Chromatin Antibody <0.2 AI (0.0-0.9) Centromere B Antibody <0.2 AI (0.0-0.9) Erythrocyte Sedimentation Rate 27 mm/hr (0-20) Lactic Acid Level 2.0 mmol/L (0.4-2.0) C-Reactive Protein High Sensitivity 1.63 mg/dL (<1.0) Other Laboratory Tests 05/04/25 05:08 05/03/25 02:16 Brief Hx & Hospital Course: 45-year-old male with no significant past medical history, presented to [facility] ED with complaint of right foot pain and swelling. Patient reports that his right foot became swollen and painful starting 1 week ago. He describes the pain as burning in nature, radiating to the right big toe, and associated with swelling and bruising and also reports pain in his left big toe. 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 He also reports a right foot fracture sustained 20 years ago, without surgical intervention. Since then, he has experienced intermittent pain and swelling in the right foot. Patient reports inability to bear weight on the right lower extremity due to pain. Patient is currently ambulating with the assistance of crutches. Patient denies any recent trauma, injury, or falls. On evaluation in the ED, patient is afebrile, vitals are stable, blood pressure 166/95 mmHg. Initial labs show significant uric acid 9.5, creatinine 1.35 with elevated ESR, CRP. Foot X-Ray shows no fractures or dislocations and no radiopaque foreign bodies. The patient was started on pain medication and IV fluids. Patient is admitted for further evaluation and management. 05/03: 45-year-old male no past medical coming in with right foot pain swollen. Gout flare right foot,. Also have TIN due to VMN,. Right foot x-ray and CT with no fractures. Arterial ultrasound bilateral lower extremity with no stenosis. We will continue IV fluids, colchicine, Solu-Medrol IV 20 b.i.d., Protonix 40 daily IV. 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 We will give IV fluids. Treating gout inpatient. Reassess tomorrow. 05/04: Blood culture positive 1 of 2, likely contaminant. Patient is feeling better. Right foot erythema significantly improved. Vital signs stable, stable for discharge as per plan below. 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 - take Pepcid 20 mg twice daily for 14 days. - avoid cold exposure, keep extremity suggest hands and feet warm. Avoid red meats and vegetables high in purine (is [place], , cauliflower, spinach, mushrooms, piece) - avoid any NSAIDs, use Tylenol instead for pain - discussed preventive plan for gout flare-ups with PCP, may need as needed scheduled for colchicine - hydrate well, PCP to follow up on analgesia nephropathy. 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 Patient was counseled about treatment plan, medications, possible side effects, patientverbalized understanding. All questions were answered to the best of my ability. This discharge took greater then 30 minutes in planning, reviewing documentation, counseling the patient, and discussing with other team members." ASSESSMENT ASSESSMENT Assessment Date of Service: May 04, 2025 Billing Provider: SUKH RIDER MD Common Visit Codes: [id number] DISCH DAY >30min SUKH RIDER MD May 04, 2025 14:17
== END 2025-05-04 16:14 | disposition home or self-care (01) | DRG 602 ==
LOC: ER 16:39 → OVERFLOW 22:36 → WEST WING 23:55
PROVIDERS: ADMIT Student in an Organized Health Care Education/Training Program; ATTEND Student in an Organized Health Care Education/Training Program
DX: L03.115 Cellulitis of right lower limb (principal); N17.0 Acute kidney failure with tubular necrosis; M10.9 Gout, unspecified; N14.0 Analgesic nephropathy; R74.01 Elevation of levels of liver transaminase levels; Z79.899 Other long term (current) drug therapy
CPT/HCPCS: 36415; 73630; 73700; 80053; 80307; 81001; 83516; 83605; 84550; 85025; 85652; 86141; 86225; 86235; 87040; 93925; 93970; 96365; G0378; J2470; J3490